=== PATIENT | female | born 1980 | race Caucasian/White ===

== ENCOUNTER → 2025-01-07 09:00 | Outpatient (BNV) | payer OTHER, SELFPAY | PROVIDERS: Visit Provider Psychiatry & Neurology Psychiatry | DX: F33.9 Major depressive disorder, recurrent, unspecified (principal); F34.89 Other specified persistent mood disorders; F41.3 Other mixed anxiety disorders; F90.9 Attention-deficit hyperactivity disorder, unspecified type | CPT/HCPCS: 99499 ==

== ENCOUNTER → 2025-01-08 08:00 | Outpatient (REF) | payer OTHER, SELFPAY ==
--- OUTSIDE RECORDS SUMMARY | 2025-01-08 08:04 | XMS_ITS ---
Author Name [facility] Organization Unknown Care Team Organization Name Specialty Phone Email Start Date End Da te [facility] 01/26/2022
--- NOTE | 2025-01-08 08:11 | ECG_ITS ---
Test Reason : QTC CHECK Blood Pressure : */* mmHG Vent. Rate : 80 BPM Atrial Rate : 80 BPM P-R Int : 178 ms QRS Dur : 88 ms QT Int : 374 ms P-R-T Axes : 56 38 22 degrees QTcB Int : 431 ms Normal sinus rhythm Normal ECG No previous ECGs available Referred By: Mary Nuñez Electronically Signed By: EDIN BURROUGHS MD
[2025-01-08 08:27] LABS: MANUAL DIFF FLAG NO
[2025-01-08 09:14] LABS: Hematocrit 42.3 % (37.0-47.0); Hemoglobin 14.0 g/dl (12.0-16.0); Imm Gran Abs Auto 0.01 X10*3/uL (0.00-0.03); Imm Gran Pct Auto 0.1 % (0.0-0.4); Lymphocytes Absolute Auto 2.3 X10*3/uL (1.2-4.9); Mean Corpuscular HGB Conc 33.1 g/dl (31.0-35.0); Mean Corpuscular Hemoglobin 28.2 pg (27.0-33.0); Mean Corpuscular Volume 85.3 fL (80.0-98.0); NRBC Abs Auto 0.000 X10*3/uL (0.0-0.012); NRBC Pct Auto 0.0 /100WBC (0.0-0.2); Platelet Count 273 X10*3/uL (160-400); Red Blood Count 4.96 X10*6/uL (4.20-5.50); White Blood Count 6.8 X10*3/uL (4.8-10.8)
[2025-01-08 10:03] LABS: Appearance Urine Clear; Glucose Urine UA Negative (Negative); PH 6.5 (5.0-9.0); Specific Gravity - Urine 1.010 (1.005-1.025)
[2025-01-08 11:40] LABS: Alanine Aminotransferase 19 U/L (0-31); Albumin Level 4.7 g/dL (3.5-5.0); Alkaline Phosphatase 57 U/L (39-117); Anion Gap 12 (12-20); Aspartate Amino Transferase 25 U/L (5-31); Blood Urea Nitrogen 13 mg/dL (9-16); Calcium 9.1 mg/dL (8.4-10.2); Carbon Dioxide 23 mmol/L (22-29); Chloride 109 mmol/L (96-108); Cholesterol 216 mg/dL (<200); Estimated Glomerular Filt Rate > 60; HDL Cholesterol 41 mg/dL (>40); Iron 86 mcg/dL (30-160); Magnesium 2.1 mg/dL (1.6-2.6); Percent Iron Saturation 32 % (15-50); Potassium 4.0 mmol/L (3.3-5.1); Sodium 140 mmol/L (135-145); Total Iron Binding Capacity 271 mcg/dL (228-428); Total Protein 7.6 g/dL (6.5-8.0); Triglycerides 90 mg/dL (<150); Unsaturated Iron Binding 185 ug/dL
[2025-01-08 11:54] LABS: Folate 11.6 ng/mL (> or = 4.0); Vitamin B12 282 pg/mL (200-900)
[2025-01-08 12:47] LABS: Free T4 (Free Thyroxine) 0.90 ng/dL (0.71-1.85); Thyroid Stimulating Hormone 1.19 uIU/mL (0.32-4.0)
== END ==
LOC: HO.CARD 08:00
PROVIDERS: Visit Provider Psychiatry & Neurology Psychiatry
DX: F33.2 Major depressive disorder, recurrent severe without psychotic features (principal); F41.1 Generalized anxiety disorder; Z13.29 Encounter for screening for other suspected endocrine disorder; Z13.6 Encounter for screening for cardiovascular disorders; Z13.1 Encounter for screening for diabetes mellitus
CPT/HCPCS: 36415; 80053; 80061; 81001; 82306; 82607; 82746; 83036; 83090; 83540; 83735; 84425; 84439; 84443; 85025; 85652; 93005

== ENCOUNTER → 2025-01-08 08:11 | Outpatient (BNV) | payer OTHER, SELFPAY | PROVIDERS: Visit Provider Internal Medicine Cardiovascular Disease | DX: Z13.6 Encounter for screening for cardiovascular disorders (principal) | CPT/HCPCS: 93010 ==

== ENCOUNTER 2025-01-17 08:30 | Outpatient (RCR) | payer OTHER, SELFPAY ==
[2024-12-26 09:40] VITALS: BP 118/64; PULSE 80; TEMP 36.6; BMI 40.5
--- NOTE | 2024-12-26 15:07 | PC.ADMIT ---
Patient is a 44 year old female who self referred to [facility] secondary to anxiety and depression sxs. Patient reports a history of panic attacks where she cries and hyperventilates stating, My mind just goes and goes and I'll say things and I don't even know what I am saying. Patient reports she was previously employed at [employer]. 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 Patient reports she is unable to work d/t debilitating anxiety which also stops her from driving at times and being around people. Supports include partner, therapist, brother. Patient is alert and oriented x4. She is calm and cooperative. She presented with depressed mood and anxious affect. She denied SI, no HI. She was given a copy of her safety plan if needed. Medications updated with patient and patient's pharmacy. She reports she is taking her medications as prescribed. Patient reports a history of using another persons Xanax and Adderall daily along with using cocaine daily for 2 years when she was in [place]. Stated last time she used these substances was at age 24. Reports that she had one overdose at that time.
--- NOTE | 2024-12-26 15:08 | PC.NURSE ---
Patient has a new PCP appointment scheduled in February 2025.
--- NOTE | 2024-12-26 15:10 | PC.NURSE ---
Patient stated she was taken off Wellbutrin and was changed to Mirtazapine. Patient stated she is not taking Hydroxyzine as she feels it does not work.
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
--- NOTE | 2025-01-03 08:44 | PC.NURSE ---
01/02/25. 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 Patient recently started Lamictal. Took picture of the area and sent to Dr. Nuñez to review. Patient was told to hold Lamictal per Dr. Nuñez's instructions along with applying lotion, non scented, to the area twice a day and will see her on 01/03/25.
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
--- NOTE | 2025-01-08 22:47 | P.PNPSP_ITS ---
Subjective Subjective Date of Service: 01/08/25 Reason For Visit: JORGE,PTSD,depression Interim History: Patient anticipating discharge today. Some improvements noted on Abilify, currently at 3 mg. Less mood instability, less reactive, more level. No anger or irritability. No side effects. Did not receive 5 mg tablets, which were now sent to pharmacy. Mirtazapine was reduced to 7.5, no effects on sleep. Sleep, appetite are stable. Anxiety related to new job, will be starting next week, working at [employer] on [employer] [facility] [employer] [facility]. Reviewed issues/concerns with chronic focus/attentional issues and is currently posed to start on stimulant with mood better regulated. Denies any h/h/SI. Patient would benefit from an extension to further optimize ABilify especially since starting on treatment for ADHD. Medication Compliance: Yes Side effects from medications: No Attending Groups: Yes Review of Systems Acute medical concerns: No Mental Status Exam Mental Status Exam Narrative: Alert, oriented, in no acute distress. Calm, cooperative, engaged. No psychomotor agitation or neurovegetative retardation. Eye contact maintained. Mood improving, more stable, affect variable, brighter, no irritability or lability noted. Speech normal. Thought process linear, coherent. Thought content related to stressors, s/s executive dysfunction, denies SI, intention or plan. Denies any aggressive ideation. No paranoia or delusional content elicited. No evidence of psychosis. Insight and judgment intact. Diagnostics Vital Signs (24Hr): BMI result Body Mass Index 40.5 Assessment & Plan Assessment & Plan (1) MDD (major depressive disorder), recurrent episode: Status: Acute Code(s): F33.9 - Major depressive disorder, recurrent, unspecified (2) Other specified persistent mood disorders: Status: Acute Code(s): F34.89 - Other specified persistent mood disorders (3) Other mixed anxiety disorders: Status: Acute Code(s): F41.3 - Other mixed anxiety disorders (4) Attention-deficit hyperactivity disorder, unspecified type: Status: Acute Code(s): F90.9 - Attention-deficit hyperactivity disorder, unspecified type Plan continue PHP start Adderall XR 5-15 mg qam or IR 5 mg BID (if XR requiring PA) increase Abilify 3.5-5 mg qd continue Lamictal 25 mg qd (titrate by 25 mg/d q 2wks until 100 mg as tolerated) continue clonidine 0.1 mg to BID prn anxiety (AM and HS) taper off mirtazapine after one week (given weight gain concerns) patient now taking clonidine HS continue clonazepam 0.25-0.5 mg qd prn daily in afternoon Routine lab work as indicated seen EKG, routine for baseline QTc for medication considerations as indicated UDS as indicated VS on admission: afebrile, BP 118/64;?80 bpm Continue to monitor Patient educated on: diagnosis and medication risk/benefits Informed Consent: understands Reason for contiued partial hosp. stay Substantial Risk for: med/psych decompensation Certification I certify that partial hospital treatment is medically necessary due to the symptoms and problems resulting from the patient's mental illness and the failure to treat the patient at the partial hospital level of care would likely result in the patient requiring inpatient psychiatric care which could not be prevented at a less intensive level of care. Total time managing care of this patient today __30__ minutes. Discharge Plan Discharge Attending provider: Mary Nuñez Medications: New lamotrigine 25 mg tablet 25 mg PO DAILY 14 Days Qty: 14 0RF lisdexamfetamine 10 mg capsule 10 mg PO QAM Qty: 30 0RF Rx Instructions: Partial Fill upon patient request. clonazepam [Klonopin] 0.5 mg tablet 0.5 mg PO .daily in afternoon PRN (Reason: anxiety) Qty: 10 0RF aripiprazole 5 mg tablet 5 mg PO BEDTIME Qty: 30 0RF Continued clonidine HCl 0.1 mg tablet 0.1 mg PO TID PRN (Reason: Anxiety) aripiprazole 2 mg tablet 2 mg PO BEDTIME Qty: 30 0RF dextroamphetamine-amphetamine [Adderall XR] 5 mg capsule,extended release 24hr 5 mg PO QAM Qty: 30 0RF Rx Instructions: Partial Fill upon patient request. dextroamphetamine-amphetamine 5 mg tablet 5 mg PO BID Qty: 30 0RF Rx Instructions: administer doses at least 4-6 hours apart; Partial Fill upon patient request. Changed mirtazapine 15 mg tablet 7.5 mg PO BEDTIME Qty: 14 0RF Discontinued hydroxyzine HCl 25 mg tablet 25 mg PO TID PRN (Reason: insomnia/anxiety) Rx Instructions: Patient stated she does not take as she does not find it effective. Stand Alone Forms: Patient Portal Discharge page Patient Education: ADHD in Adults (ED), ADHD in Adults (DC), Depression (DC), Anxiety (ED) Print Language: Cambodian
== END 2025-01-17 23:59 | disposition home or self-care (01) ==
LOC: HO.PHPA 08:30
PROVIDERS: Visit Provider Psychiatry & Neurology Psychiatry
DX: F33.9 Major depressive disorder, recurrent, unspecified (principal); F34.89 Other specified persistent mood disorders; F41.3 Other mixed anxiety disorders; F90.9 Attention-deficit hyperactivity disorder, unspecified type; Z79.899 Other long term (current) drug therapy
CPT/HCPCS: 90791; 90853